=== PATIENT | male | born 1965 | race Caucasian/White ===

== ENCOUNTER 2018-10-23 09:32 | Emergency (ER) | payer OTHER ==
[2018-10-23] MEDS ORDERED: ACETAMINOPHEN 325 MG TAB PO ONE (09:47)
--- NOTE | 2018-10-23 09:52 | Emergency Department Record ---
History of Present Illness - General Chief Complaint: Knee injury Stated Complaint: KNEE INJURY Time Seen by Provider: 10/23/18 09:39 Source: Patient Mode of Arrival: Ambulatory Limitations: No limitations - History of Present Illness Initial Comments: The patient is here due to injuring his R knee about 30 minutes ago. He was stepping down off a porch and landed funny on a rock twisting his knee and then he felt a "POP" and immediate pain. He did not fall or land directly on the knee. He is able to weight bear with pain. MD Complaint: Knee injury Onset/Timin -: Minutes(s) Type of Injury: Hyperextension Place: Street/outdoors Severity scale (1-10): 8 Improves With: Immobilization Worsens With: Movement, Weight bearing Context: Other Associated Symptoms: Snap/pop sensation, Ambulatory, Able to partially bear weight - Related Data Home Medications Medication Instructions Recorded Confirmed Last Taken Metformin HCl 1,000 mg PO BID 10/23/18 10/23/18 Unknown Allergies Allergy/AdvReac Type Severity Reaction Status Date / Time No Known Drug Allergies Allergy Verified 10/23/18 09:43 Travel Screening - Travel/Exposure Within Last 30 Days Have you traveled within the last 30 days?: No Review of Systems Constitutional: Denies: Chills, Fever Eyes: Denies: Eye discharge ENT: Denies: Congestion Respiratory: Denies: Cough, Dyspnea Past Medical History - SOCIAL HISTORY Smoking Status: Current every day smoker Alcohol Use: None Drug Use: None - RESPIRATORY Hx Respiratory Disorders: No - CARDIOVASCULAR Hx Cardio Disorders: No - NEURO Hx Neuro Disorders: No - GI Hx GI Disorders: No - Hx Genitourinary Disorders: Yes Comment:: renal tumor/cancer - ENDOCRINE Hx Endocrine Disorders: Yes Hx Diabetes: Yes (type 2) - MUSCULOSKELETAL Hx Musculoskeletal Disorders: No - PSYCH Hx Psych Problems: No - HEMATOLOGY/ONCOLOGY Hx Hematology/Oncology Disorders: Yes Hx Cancer: Yes Hx Chemotherapy: No Hx Radiation Therapy: No Family Medical History Any Significant Family History?: No Physical Exam - General General Appearance: Alert, Oriented x3 - Head Head exam: Atraumatic, Normocephalic - Eye Eye exam: Normal appearance - Extremities Extremities exam: Joint swelling (There is a mild to moderate joint effusion present.), Tenderness (There is diffuse anterior knee tenderness. There is no ligamentous laxity appreciated with a neg anterior drawer sign.), Other (The R lower leg is NVI.). negative: Normal inspection, Calf tenderness, Full ROM ( There is pain on flexion >90 degrees.), Pedal edema Course Vital Signs 10/23/18 09:34 Temperature 97.8 F Pulse Rate 118 H Respiratory 18 Rate Blood Pressure 178/104 Pulse Ox 99 - Reevaluation(s) Reevaluation #1: I did explain to the patient that the xray is neg but I am concerned he has an injury to his knee ligaments or meniscus. Due to that he is to use the Immobilizer and crutches and is to see doctor later this week for an MRI and Ortho referral. The patient lives in [facility] and will see his doctor there. 10/23/18 11:02 Medical Decision Making - Data Complexity MDM Data: X-Ray Ordered and/or Reviewed - Radiology Data Radiology results: Report reviewed (R knee: Neg for fx, pos joint effusion.) Disposition Disposition: Discharge Clinical Impression: Right knee injury Qualifiers: Encounter type: initial encounter Qualified Code(s): S89.91XA - Unspecified injury of right lower leg, initial encounter Disposition: Home, Self-Care Condition: (2) Stable Instructions: Swollen Knee Joint (ED) Additional Instructions: Please use Tylenol or Motrin for pain and use the Immobilizer and Crutches for walking. Ice the knee for 2 days when possible and see your family doctor to get an MRI ordered and for an Orthopedic doctor referral. Forms: Patient Portal Access Time of Disposition: 11:04 Quality - Quality Measures Quality Measures: N/A - Blood Pressure Screening View Details: Yes Does Patient Have Any of the Following: No Blood Pressure Classification: Hypertensive Reading Systolic Measurement: 178 Diastolic Measurement: 104 Screening for High Blood Pressure: < First Hypertensive BP, F/U Documented > [ [id number]] First Hypertensive Follow-up Interventions: Referral to alternative/primary care provider.
--- NOTE | 2018-10-24 13:26 | RADIOLOGY REPORT ---
EXAM: RIGHT KNEE, THREE VIEWS HISTORY: PATIENT HAS HISTORY OF KNEE INJURY. TECHNIQUE: Three views of the right knee are provided without comparison examinations. FINDINGS: There is no radiographic evidence of a fracture or dislocation of the right knee. No significant soft tissue abnormalities are visualized. Moderate suprapatellar bursal fluid is identified. IMPRESSION: MODERATE SUPRAPATELLAR BURSAL EFFUSION IS NOTED WITHOUT RADIOGRAPHIC EVIDENCE OF A FRACTURE OR DISLOCATION OF THE RIGHT KNEE. IF THERE IS CLINICAL CONCERN FOR LIGAMENTOUS INJURY THEN MRI OF THE RIGHT KNEE CAN BE OBTAINED FOR FURTHER EVALUATION. JOB NUMBER: [id number] [facility]
== END 2018-10-23 11:23 | disposition home or self-care (01) ==
LOC: ER 09:32
DX: S89.91XA Unspecified injury of right lower leg, initial encounter (principal); M25.461 Effusion, right knee; X50.0XXA Overexertion from strenuous movement or load, initial encounter; Y92.410 Unspecified street and highway as the place of occurrence of the external cause; Y99.0 Civilian activity done for income or pay
CPT/HCPCS: 99283